=== PATIENT | female | born 1970 | race African-American/Black ===

== ENCOUNTER 2017-11-13 13:27 | Inpatient (IN) | payer OTHER ==
[~2017-11-13] VITALS: Ht 157.5 cm; Wt 127.0 kg
[~2017-11-13 13:27] MED LIST: AZITHROMYCIN250 M1 PO; CYMBALTA30 M1 PO; MIRALAX17 GM/Dose PO; PHECLUD PO
[2017-11-13 15:12] LABS: microscopic required? NO
[2017-11-13 15:58] LABS: ALBUMIN 3.3 g/dL (3.4-5.0); ALKALINE PHOSPHATASE 63 U/L (46-116); ALT/SGPT 21 U/L (14-59); AMYLASE 86 U/L (25-115); AST/SGOT 10 U/L (15-37); BILIRUBIN TOTAL 0.3 mg/dL (0.20-1.00); CALCIUM 8.7 mg/dL (8.5-10.1); CHLORIDE SERUM 105 mmol/L (98-107); CHOLESTEROL 189 mg/dL (<200); CREATININE SERUM 0.8 mg/dL (0.6-1.0); GFR1 > 60 mL/min; GLUCOSE SERUM 105 mg/dL (74-106); HDL CHOLESTEROL 38 mg/dL (40-60); LIPASE 158 IU/L (73-393); SODIUM SERUM 143 mmol/L (136-145); TOTAL PROTEIN, SERUM 7.3 g/dL (6.4-8.2)
[2017-11-13 16:08] LABS: BASOPHIL % 0.5 % (0-2); PLATELET COUNT 352 x10^3mcL (130-400); RED CELL DISTRIBUTION WIDTH 13.5 % (11.5-14.5)
[2017-11-13 16:54] LABS: UA SPECIFIC GRAVITY 1.025 (1.005-1.035); urine erythrocyte NEGATIVE (NEGATIVE)
[2017-11-13 18:19] LABS: AMPHETAMINE QUAL UR NONE DETECTED (NEG <=1000)
[2017-11-13 19:04] VITALS: BP 138/93
[2017-11-13 19:08] VITALS: Ht 157.5 cm; Wt 127.0 kg
[2017-11-13 21:25] LABS: T3 TOTAL 1.05 ng/mL
[2017-11-13 21:26] LABS: FREE T4 1.03 ng/dL (0.76-1.46); FREE THYROXINE INDEX 3.1 ug/dL (1.4-4.5); T4(THYROXINE) 9.7 ug/dL (4.7-13.3)
[2017-11-13 22:07] LABS: MAGNESIUM 1.7 mg/dL (1.8-2.4); PHOSPHOROUS 2.5 mg/dL (2.5-4.9)
[2017-11-13 23:13] VITALS: BP 120/82
[2017-11-14 06:27] VITALS: BP 100/56
[2017-11-14 07:10] LABS: CALCIUM 8.3 mg/dL (8.5-10.1); CHLORIDE SERUM 109 mmol/L (98-107); CREATININE SERUM 0.7 mg/dL (0.6-1.0); GFR1 > 60 mL/min; GLUCOSE SERUM 109 mg/dL (74-106); MAGNESIUM 1.6 mg/dL (1.8-2.4); PHOSPHOROUS 3.3 mg/dL (2.5-4.9); POTASSIUM SERUM 3.8 mmol/L (3.5-5.1); SODIUM SERUM 143 mmol/L (136-145)
[2017-11-14 07:53] LABS: BASOPHIL % 0.5 % (0-2); PLATELET COUNT 299 x10^3mcL (130-400); RED CELL DISTRIBUTION WIDTH 13.2 % (11.5-14.5)
[2017-11-14 12:30] VITALS: BP 95/58
[2017-11-14 17:20] VITALS: BP 115/69
[2017-11-14 21:03] VITALS: BP 106/59
[2017-11-15 05:24] VITALS: BP 113/51
[2017-11-15 06:29] LABS: BASOPHIL % 0.1 % (0-2); PLATELET COUNT 291 x10^3mcL (130-400); RED CELL DISTRIBUTION WIDTH 12.9 % (11.5-14.5)
[2017-11-15 06:38] LABS: CALCIUM 8.4 mg/dL (8.5-10.1); CARBON DIOXIDE 27.8 mmol/L (21-32); CHLORIDE SERUM 108 mmol/L (98-107); CREATININE SERUM 0.6 mg/dL (0.6-1.0); GFR1 > 60 mL/min; GLUCOSE SERUM 107 mg/dL (74-106); MAGNESIUM 2.2 mg/dL (1.8-2.4); PHOSPHOROUS 3.3 mg/dL (2.5-4.9); POTASSIUM SERUM 4.4 mmol/L (3.5-5.1); SODIUM SERUM 142 mmol/L (136-145)
[2017-11-15 10:25] VITALS: BP 123/73
[2017-11-15 18:13] VITALS: BP 149/77
[2017-11-15 21:15] VITALS: BP 135/80
[2017-11-16 04:31] VITALS: BP 124/70
[2017-11-16 07:45] LABS: CALCIUM 7.5 mg/dL (8.5-10.1); CHLORIDE SERUM 108 mmol/L (98-107); CREATININE SERUM 0.8 mg/dL (0.6-1.0); GFR1 > 60 mL/min; GLUCOSE SERUM 103 mg/dL (74-106); MAGNESIUM 1.9 mg/dL (1.8-2.4); PHOSPHOROUS 2.9 mg/dL (2.5-4.9); POTASSIUM SERUM 3.7 mmol/L (3.5-5.1); SODIUM SERUM 142 mmol/L (136-145)
[2017-11-16 07:48] LABS: BASOPHIL % 0.2 % (0-2); PLATELET COUNT 246 x10^3mcL (130-400); RED CELL DISTRIBUTION WIDTH 13.2 % (11.5-14.5)
[2017-11-16 08:41] VITALS: BP 121/62
[2017-11-16] MEDS ORDERED: APAP/HYDROCODON1 T13 PO (11:45)
[2017-11-16] MEDS ORDERED: FLE10 PO (11:45)
[2017-11-16] MEDS ORDERED: SIMETHICONE80 MG CH (11:46)
[2017-11-16] MEDS ORDERED: TYL325 PO (11:46)
[2017-11-16] MEDS ORDERED: SEN PO (11:47)
[2017-11-16] MEDS ORDERED: COL100 PO (11:47)
[2017-11-16] MEDS ORDERED: ZOF4 PO (11:47)
[2017-11-16] MEDS ORDERED: CEPHALEXIN500 MG PO (11:51)
[2017-11-16] MEDS ORDERED: LAC PO (11:51)
[2017-11-16 13:49] VITALS: BP 151/86
[2017-11-16 16:46] VITALS: BP 151/86
== END 2017-11-16 18:04 | disposition home or self-care (01) | DRG 263 ==
LOC: ED 13:27 → DU 17:23 → MU 11-14 13:31
PROVIDERS: Emergency Medicine; Family Medicine; Surgery
PROC: 0FT44ZZ Resection of Gallbladder, Percutaneous Endoscopic Approach (ICD-10-PCS; principal; 2017-11-14 09:00)
DX: K80.70 Calculus of gallbladder and bile duct without cholecystitis without obstruction (principal); E44.1 Mild protein-calorie malnutrition; Z68.43 Body mass index [BMI] 50.0-59.9, adult; Z88.3 Allergy status to other anti-infective agents; Z91.013 Allergy to seafood; E66.01 Morbid (severe) obesity due to excess calories; K42.9 Umbilical hernia without obstruction or gangrene; K59.00 Constipation, unspecified; R73.03 Prediabetes; Z83.3 Family history of diabetes mellitus; M94.0 Chondrocostal junction syndrome [Tietze]; M54.9 Dorsalgia, unspecified; E83.42 Hypomagnesemia
CPT/HCPCS: 36600; 83880; 84439; J0330; J0690; J1100; J1644; J1885; J2175; J2250; J2704; J2710; J3010; J3475; J3490; J7030; J7120; J7620; Q0092